=== PATIENT | female | born 1995 | race Caucasian/White ===

== ENCOUNTER 2016-06-09 20:29 | Emergency (ER) | payer OTHER ==
[2016-06-09 20:43] VITALS: TEMP 99.3
--- NOTE | 2016-06-09 22:07 | ED ---
Upper Extremity HPI - General Chief Complaint: Extremity Injury, Upper Stated Complaint: left arm bruising (Plasma donor) Time Seen by Provider: 06/09/16 21:47 Source: patient Mode of arrival: ambulatory Limitations: no limitations - History of Present Illness Initial Comments: This patient is a 20-year-old woman who presents to be evaluated for some bruising to the left upper arm. The patient states that about 30 hours ago she had gone to donate plasma. They inserted the needle into the left antecubital fossa. Patient states that she may have flinched. She then had noted that bruising was developing over the course of that evening. She states that her upper arm felt somewhat firm and there was some tenderness. Over the course of today she has noted extensive bruising developing to the left upper arm. She denies any symptoms distal to that. MD Complaint: Injury to:: left, arm Onset/Timin -: days(s) Other Injuries: none Handedness: right Improves With: none Worsens With: none Associated Symptoms: denies other symptoms - Related Data Home Medications Medication Instructions Recorded Confirmed No Known Home Medications [No 06/09/16 06/09/16 Known Home Medications] Allergies Allergy/AdvReac Type Severity Reaction Status Date / Time No Known Allergies Allergy Verified 06/09/16 20:43 Review of Systems ROS Statement: Those systems with pertinent positive or pertinent negative responses have been documented in the HPI. ROS Other: All systems not noted in ROS Statement are negative. Constitutional: Denies: fever, chills Respiratory: Denies: cough, dyspnea Cardiovascular: Denies: chest pain, palpitations, syncope Gastrointestinal: Denies: abdominal pain, vomiting, diarrhea Skin: Reports: other (Present). Denies: rash Neurological: Denies: weakness, numbness Hematological/Lymphatic: Denies: easy bleeding, easy bruising Past Medical History Additional Past Medical History / Comment(s): depression History of Any Multi-Drug Resistant Organisms: None Reported Past Surgical History: No Surgical Hx Reported Past Psychological History: Anxiety, Depression Smoking Status: Never smoker Past Alcohol Use History: None Reported Past Drug Use History: Marijuana General Exam Limitations: no limitations General appearance: alert, in no apparent distress Respiratory exam: Present: normal lung sounds bilaterally. Absent: respiratory distress, wheezes, rales, rhonchi, stridor Cardiovascular Exam: Present: regular rate, normal rhythm, normal heart sounds. Absent: systolic murmur, diastolic murmur, rubs, gallop Extremities exam: Present: other (Patient has some ecchymosis beginning at the antecubital fossa and extending up the medial aspect of the left arm. There is mild swelling and tenderness. There is no neurovascular function distally.) Neurological exam: Present: alert. Absent: motor sensory deficit Skin exam: Present: warm, dry, intact, other (Ecchymosis as above) Course Vital Signs 06/09/16 06/09/16 20:39 22:25 Temperature 99.3 F Pulse Rate 123 H 109 H Respiratory 20 18 Rate Blood Pressure 146/85 115/64 O2 Sat by Pulse 96 97 Oximetry Medical Decision Making - Lab Data Result diagrams: 06/09/16 22:20 Lab Results 06/09/16 06/09/16 Range/Units 22:20 22:20 WBC 9.5 (4.0-11.0) k/uL RBC 4.43 (3.80-5.40) m/uL Hgb 13.2 (11.4-16.0) gm/dL Hct 39.3 (34.0-46.0) % MCV 88.9 (80.0-100.0) fL MCH 29.8 (25.0-35.0) pg MCHC 33.5 (31.0-37.0) g/dL RDW 13.0 (11.5-15.5) % Plt Count 316 (150-450) k/uL Neutrophils % 68 % Lymphocytes % 25 % Monocytes % 4 % Eosinophils % 1 % Basophils % 1 % Neutrophils # 6.5 (1.3-7.7) k/uL Lymphocytes # 2.4 (1.0-4.8) k/uL Monocytes # 0.4 (0-1.0) k/uL Eosinophils # 0.1 (0-0.7) k/uL Basophils # 0.1 (0-0.2) k/uL PT 10.3 (9.0-12.0) sec INR 1.0 (<1.1) APTT 23.1 (22.0-30.0) sec Disposition Clinical Impression: Hematoma Disposition: HOME SELF-CARE Condition: Good Instructions: Hematoma (ED) Referrals: Yo Dee MD [Primary Care Provider] - 1-2 days
[2016-06-09 22:27] VITALS: BP 115/64; PULSE 109; RESP 18
[2016-06-09 22:32] LABS: Basophils # (A) 0.1 k/uL (0-0.2); Basophils % (A) 1 %; CH 30.7; CHCM 34.6; Eosinophils # (A) 0.1 k/uL (0-0.7); Eosinophils % (A) 1 %; HCT 39.3 % (34.0-46.0); HDW 2.64; HGB 13.2 gm/dL (11.4-16.0); Luc % (Auto) 1; Lymphocytes # (A) 2.4 k/uL (1.0-4.8); Lymphocytes % (A) 25 %; MCH 29.8 pg (25.0-35.0); MCHC 33.5 g/dL (31.0-37.0); MCV 88.9 fL (80.0-100.0); Mean Platelet Volume 6.8; Monocytes # (A) 0.4 k/uL (0-1.0); Monocytes % (A) 4 %; Neutrophils # (A) 6.5 k/uL (1.3-7.7); Neutrophils % (A) 68 %; RBC 4.43 m/uL (3.80-5.40); WBC 9.5 k/uL (4.0-11.0); WBC (Perox) 9.77
[2016-06-09 22:40] LABS: Partial Thromboplastin Time 23.1 sec (22.0-30.0); Prothrombin Time 10.3 sec (9.0-12.0)
== END 2016-06-09 22:55 | disposition home or self-care (01) ==
LOC: EC 20:29
DX: S40.022A Contusion of left upper arm, initial encounter (principal); W26.8XXA Contact with other sharp object(s), not elsewhere classified, initial encounter
CPT/HCPCS: 36415; 85025; 85610; 85730; 99283